=== PATIENT | male | born 1985 | race Caucasian/White ===

== ENCOUNTER 2017-09-11 17:18 | Emergency (ER) | payer OTHER ==
[2017-09-11 17:46] VITALS: BP 124/79
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
[2017-09-11] MEDS ORDERED: OXYCODONE/APAP 5/325 TAB PO ONE (18:23)
[2017-09-11] MEDS ORDERED: OXYCODONE/APAP 5/325MG PREPACK#4 BTL TAKEHOME ONE (18:32)
== END 2017-09-11 18:36 | disposition home or self-care (01) ==
DX: S42.001A Fracture of unspecified part of right clavicle, initial encounter for closed fracture (principal); V18.4XXA Pedal cycle driver injured in noncollision transport accident in traffic accident, initial encounter; Y92.410 Unspecified street and highway as the place of occurrence of the external cause; Y99.8 Other external cause status; Y93.55 Activity, bike riding